=== PATIENT | female | born 1955 | race Caucasian/White ===

== ENCOUNTER → 2019-10-02 14:16 | Outpatient (BNVA) | payer OTHER, SELFPAY | PROVIDERS: Family Provider Nurse Practitioner Family; Visit Provider Internal Medicine Rheumatology | DX: M05.79 Rheumatoid arthritis with rheumatoid factor of multiple sites without organ or systems involvement (principal); Z79.891 Long term (current) use of opiate analgesic; Z79.899 Other long term (current) drug therapy; Z11.59 Encounter for screening for other viral diseases; Z72.89 Other problems related to lifestyle | CPT/HCPCS: 36415; 80076; 82565; 85651; 86140; 86704; 86803; 87340 ==

== ENCOUNTER → 2019-10-02 14:35 | Outpatient (BNVA) | payer OTHER, SELFPAY | PROVIDERS: Family Provider Nurse Practitioner Family; Visit Provider Internal Medicine Rheumatology | DX: M05.79 Rheumatoid arthritis with rheumatoid factor of multiple sites without organ or systems involvement (principal); M05.9 Rheumatoid arthritis with rheumatoid factor, unspecified; Z79.899 Other long term (current) drug therapy; Z79.891 Long term (current) use of opiate analgesic | CPT/HCPCS: 85025 ==

== ENCOUNTER → 2020-02-05 09:56 | Outpatient (BNVA) | payer OTHER, SELFPAY | PROVIDERS: Family Provider Nurse Practitioner Family; PCP Nurse Practitioner Family; Visit Provider Internal Medicine | DX: M06.9 Rheumatoid arthritis, unspecified (principal); Z79.899 Other long term (current) drug therapy; F17.210 Nicotine dependence, cigarettes, uncomplicated | CPT/HCPCS: 36415; 80053; 85025; 85651; 99214 ==

== ENCOUNTER → 2020-06-03 10:15 | Outpatient (BNVA) | payer OTHER, SELFPAY | PROVIDERS: Family Provider Nurse Practitioner Family; PCP Nurse Practitioner Family; Visit Provider Internal Medicine | DX: M05.9 Rheumatoid arthritis with rheumatoid factor, unspecified (principal); M32.9 Systemic lupus erythematosus, unspecified; F17.210 Nicotine dependence, cigarettes, uncomplicated | CPT/HCPCS: 99213 ==

== ENCOUNTER → 2020-09-09 09:56 | Outpatient (BNVA) | payer OTHER, SELFPAY | PROVIDERS: Family Provider Nurse Practitioner Family; PCP Nurse Practitioner Family; Visit Provider Internal Medicine | DX: M05.9 Rheumatoid arthritis with rheumatoid factor, unspecified (principal); Z79.899 Other long term (current) drug therapy; R74.01 Elevation of levels of liver transaminase levels; M85.80 Other specified disorders of bone density and structure, unspecified site; F17.210 Nicotine dependence, cigarettes, uncomplicated | CPT/HCPCS: 99214 ==

== ENCOUNTER → 2020-12-05 10:37 | Outpatient (BNVA) | payer OTHER, SELFPAY | PROVIDERS: Family Provider Nurse Practitioner Family; PCP Nurse Practitioner Family; Visit Provider Internal Medicine | DX: M06.9 Rheumatoid arthritis, unspecified (principal); Z79.899 Other long term (current) drug therapy; F17.210 Nicotine dependence, cigarettes, uncomplicated | CPT/HCPCS: 99213; 99214 ==

== ENCOUNTER → 2021-02-28 09:54 | Outpatient (BNVA) | payer OTHER, SELFPAY | PROVIDERS: Family Provider Nurse Practitioner Family; PCP Nurse Practitioner Family; Visit Provider Internal Medicine | DX: M06.9 Rheumatoid arthritis, unspecified (principal); Z79.899 Other long term (current) drug therapy | CPT/HCPCS: 80053; 85025; 85651; 86140 ==

== ENCOUNTER → 2021-03-04 09:27 | Outpatient (BNVA) | payer OTHER, SELFPAY | PROVIDERS: Family Provider Nurse Practitioner Family; PCP Nurse Practitioner Family; Visit Provider Internal Medicine | DX: M06.9 Rheumatoid arthritis, unspecified (principal); Z79.899 Other long term (current) drug therapy; J04.0 Acute laryngitis; F17.210 Nicotine dependence, cigarettes, uncomplicated | CPT/HCPCS: 99214 ==

== ENCOUNTER → 2021-05-21 10:10 | Outpatient (BNVA) | payer OTHER, SELFPAY | PROVIDERS: Family Provider Nurse Practitioner Family; PCP Nurse Practitioner Family; Visit Provider Internal Medicine | DX: M05.9 Rheumatoid arthritis with rheumatoid factor, unspecified (principal); Z79.899 Other long term (current) drug therapy; F17.210 Nicotine dependence, cigarettes, uncomplicated; Z71.89 Other specified counseling | CPT/HCPCS: 99213; 99214 ==

== ENCOUNTER → 2022-02-26 10:57 | Outpatient (BNVA) | payer MEDICARE, OTHER, SELFPAY | PROVIDERS: Family Provider Nurse Practitioner Family; PCP Registered Nurse; Visit Provider Internal Medicine | DX: M05.9 Rheumatoid arthritis with rheumatoid factor, unspecified (principal); Z79.899 Other long term (current) drug therapy | CPT/HCPCS: 99214 ==

== ENCOUNTER → 2022-06-23 10:01 | Outpatient (BNVA) | payer MEDICARE, OTHER, SELFPAY | PROVIDERS: Family Provider Nurse Practitioner Family; PCP Registered Nurse; Visit Provider Internal Medicine | DX: M05.9 Rheumatoid arthritis with rheumatoid factor, unspecified (principal); Z79.899 Other long term (current) drug therapy | CPT/HCPCS: 99213 ==

== ENCOUNTER → 2022-11-18 14:09 | Outpatient (BNVA) | payer MEDICARE, OTHER, SELFPAY | PROVIDERS: Family Provider Nurse Practitioner Family; PCP Nurse Practitioner Family; Visit Provider Internal Medicine | DX: M06.9 Rheumatoid arthritis, unspecified (principal); M21.961 Unspecified acquired deformity of right lower leg; Z79.899 Other long term (current) drug therapy | CPT/HCPCS: 99214 ==

== ENCOUNTER → 2023-01-28 09:43 | Outpatient (BNVA) | payer MEDICARE, OTHER, SELFPAY | PROVIDERS: Family Provider Nurse Practitioner Family; PCP Nurse Practitioner Family; Referring Provider Nurse Practitioner Family; Visit Provider Nurse Practitioner Family | DX: L56.0 Drug phototoxic response (principal); T50.915A Adverse effect of multiple unspecified drugs, medicaments and biological substances, initial encounter; Y99.9 Unspecified external cause status; L72.0 Epidermal cyst; L81.4 Other melanin hyperpigmentation; L57.0 Actinic keratosis; S50.912A Unspecified superficial injury of left forearm, initial encounter; X58.XXXA Exposure to other specified factors, initial encounter; D22.5 Melanocytic nevi of trunk; L85.3 Xerosis cutis; L57.8 Other skin changes due to chronic exposure to nonionizing radiation; D69.2 Other nonthrombocytopenic purpura; L82.1 Other seborrheic keratosis | CPT/HCPCS: 17000; 17003; 99204 ==

== ENCOUNTER → 2023-02-24 14:51 | Outpatient (BNVA) | payer MEDICARE, OTHER, SELFPAY | PROVIDERS: Family Provider Nurse Practitioner Family; PCP Nurse Practitioner Family; Visit Provider Internal Medicine | DX: Z79.899 Other long term (current) drug therapy; M05.9 Rheumatoid arthritis with rheumatoid factor, unspecified | CPT/HCPCS: 99213 ==

== ENCOUNTER → 2023-03-03 09:45 | Outpatient (BNVA) | payer MEDICARE, OTHER, SELFPAY | PROVIDERS: Family Provider Nurse Practitioner Family; PCP Nurse Practitioner Family; Visit Provider Dermatology | DX: L72.0 Epidermal cyst (principal); R20.8 Other disturbances of skin sensation; R23.8 Other skin changes; L53.8 Other specified erythematous conditions | CPT/HCPCS: 11403; 12032 ==

== ENCOUNTER → 2023-06-01 14:50 | Outpatient (BNVA) | payer MEDICARE, OTHER, SELFPAY | PROVIDERS: Family Provider Nurse Practitioner Family; PCP Nurse Practitioner Family; Visit Provider Internal Medicine | DX: M06.9 Rheumatoid arthritis, unspecified (principal); Z79.899 Other long term (current) drug therapy | CPT/HCPCS: 99214 ==

== ENCOUNTER → 2023-07-06 10:45 | Outpatient (BNVA) | payer MEDICARE, OTHER, SELFPAY | PROVIDERS: Family Provider Nurse Practitioner Family; PCP Nurse Practitioner Family; Visit Provider Nurse Practitioner Family | DX: L57.0 Actinic keratosis (principal); D69.2 Other nonthrombocytopenic purpura; L81.4 Other melanin hyperpigmentation; L57.8 Other skin changes due to chronic exposure to nonionizing radiation; L85.3 Xerosis cutis; L82.1 Other seborrheic keratosis | CPT/HCPCS: 17000; 99213 ==

== ENCOUNTER → 2024-06-26 09:27 | Outpatient (BNVA) | payer MEDICARE, OTHER, SELFPAY | PROVIDERS: Family Provider Nurse Practitioner Family; PCP Nurse Practitioner Family; Visit Provider Internal Medicine Rheumatology | DX: Z79.899 Other long term (current) drug therapy (principal); M06.9 Rheumatoid arthritis, unspecified | CPT/HCPCS: 99214 ==

== ENCOUNTER → 2024-12-26 12:29 | Outpatient (BNVA) | payer MEDICARE, OTHER, SELFPAY | PROVIDERS: Family Provider Nurse Practitioner Family; PCP Nurse Practitioner Family; Visit Provider Internal Medicine Rheumatology | DX: Z79.899 Other long term (current) drug therapy (principal); M05.79 Rheumatoid arthritis with rheumatoid factor of multiple sites without organ or systems involvement; Z71.85 Encounter for immunization safety counseling | CPT/HCPCS: 99214 ==

== ENCOUNTER 2025-04-12 15:06 | Emergency (ER) | payer MEDICARE, OTHER, SELFPAY ==
[2025-04-12 15:07] VITALS: BP 147/81; PULSE 106; RESP 16; TEMP 36.7; O2SAT 95; BMI 21.1
[2025-04-12 15:39] VITALS: BP 155/90; PULSE 103; O2SAT 95
--- NOTE | 2025-04-12 15:46 | CTR_ITS ---
PROCEDURE INFORMATION: Exam: CT Cervical Spine Without Contrast Exam date and time: 04/12/2025 4:08 PM Age: 70 years old Clinical indication: Injury or trauma; Fall; Blunt trauma TECHNIQUE: Imaging protocol: Computed tomography of the cervical spine without contrast. Radiation optimization: All CT scans at this facility use at least one of these dose optimization techniques: automated exposure control; mA and/or kV adjustment per patient size (includes targeted exams where dose is matched to clinical indication); or iterative reconstruction. COMPARISON: CT head wo con* [id number] 04/12/2025 4:08 PM RADIATION DOSE METRICS: Total DLP (mGy-cm): 152.3 FINDINGS: Bones: No acute fracture. Normal alignment. [id number] multilevel degenerative changes of the cervical spine. No significant disc bulge or herniation. No severe spinal canal stenosis. Multilevel bilateral facet arthropathy with areas of [id number] bilateral neural foraminal narrowing. Lungs: Emphysematous changes with areas of pleural/parenchymal scarring in the lung apices. Soft tissues: Unremarkable. CT/CT cervical spin wo con* [id number] IMPRESSION: No acute cervical spine fracture.
--- NOTE | 2025-04-12 15:46 | CTR_ITS ---
PROCEDURE INFORMATION: Exam: CT Head Without Contrast Exam date and time: 04/12/2025 4:08 PM Age: 70 years old Clinical indication: Injury or trauma; Blunt trauma (contusions or hematomas); Injury details: -pt presents with fall, presents in c-collar. Patient states multiple falls. Patient complaining of lower back pain. TECHNIQUE: Imaging protocol: Computed tomography of the head without contrast. Radiation optimization: All CT scans at this facility use at least one of these dose optimization techniques: automated exposure control; mA and/or kV adjustment per patient size (includes targeted exams where dose is matched to clinical indication); or iterative reconstruction. COMPARISON: CT cervical spin wo con* [id number] 04/12/2025 4:08 PM RADIATION DOSE METRICS: Total DLP (mGy-cm): 1195.7 FINDINGS: Brain: Mild age-related volume loss. No hemorrhage. Periventricular and subcortical white matter hypodensities likely represent chronic small vessel ischemic changes. No mass effect. Cerebral ventricles: No ventriculomegaly. Paranasal sinuses: Visualized sinuses are unremarkable. No fluid levels. Mastoid air cells: Visualized mastoid air cells are well aerated. Bones: Unremarkable. No acute fracture. Soft tissues: Unremarkable. CT/CT head wo con* [id number] IMPRESSION: No acute intracranial abnormality.
--- NOTE | 2025-04-12 15:46 | CTR_ITS ---
PROCEDURE INFORMATION: Exam: CT Lumbar Spine Without Contrast Exam date and time: 04/12/2025 4:12 PM Age: 70 years old Clinical indication: Injury or trauma; Fall; Blunt trauma (contusions or hematomas) TECHNIQUE: Imaging protocol: Computed tomography of the lumbar spine without contrast. Radiation optimization: All CT scans at this facility use at least one of these dose optimization techniques: automated exposure control; mA and/or kV adjustment per patient size (includes targeted exams where dose is matched to clinical indication); or iterative reconstruction. COMPARISON: No relevant prior studies available. RADIATION DOSE METRICS: Total DLP (mGy-cm): 508.43 FINDINGS: Bones/joints: Acute superior endplate compression fracture of L5 with approximately 15% height loss. No extension into the posterior vertebral wall or inferior endplate. No bony retropulsion. L1-L2: No significant disc bulge or herniation. No significant spinal canal stenosis. No significant neural foraminal narrowing. L2-L3: Mild posterior disc bulge and moderate bilateral facet arthropathy, contributing to mild spinal canal stenosis mild bilateral neural foraminal stenosis. L3-L4: Mild posterior disc bulge and moderate bilateral facet arthropathy, contributing to moderate spinal canal stenosis mild bilateral neural foraminal stenosis. L4-L5: Mild posterior disc bulge and moderate bilateral facet arthropathy, contributing to mild bilateral neural foraminal stenosis and mild spinal canal stenosis. L5-S1: No significant disc bulge or herniation. Severe right and moderate left facet arthropathy, contributing to mild bilateral neural foraminal stenosis. No spinal canal stenosis. Liver: Indeterminate 1.0 cm hypodense lesion in the right hepatic lobe. Gallbladder and biliary ducts: Cholelithiasis. Kidneys and ureters: A few punctate nonobstructing stones in the right kidney. Stomach and bowel: Partially visualized right lower quadrant ostomy. Vasculature: Moderate atherosclerotic calcifications of the normal-caliber abdominal aorta. Soft tissues: Unremarkable. CT/CT lumbar spine wo con* [id number] IMPRESSION: 1. Acute superior endplate compression fracture of L5 vertebral body with approximately 15% height loss. No extension into the posterior vertebral wall or inferior endplate. No bony retropulsion. 2. Multilevel chronic degenerative changes, as described above. 3. Indeterminate 1.0 cm hypodense lesion in the right hepatic lobe. Further evaluation with non-emergent liver MRI is recommended. (Reference: [place]) REFERENCES: [place] CARTER, et al. Management of Incidental Liver Lesions on CT: A White Paper of the ACR Incidental Findings Committee. J Am Esau Radiol. 2017;14(11):2470-7708.
--- NOTE | 2025-04-12 15:53 | ED_ITS ---
HPI - Fall 2 General: Chief Complaint: Fall Stated Complaint: fall, back pain History of Present Illness: 70-year-old female who presents emergenc y room she fell yesterday. She said multiple falls recently according to the family's been somewhat confused. She complaining of lower back pain and. She arrives in a c-collar per protocol with EMS she denies losing consciousness denies any vision changes denies any vomiting. She is not on any anticoagulants. No chest pain or abdominal pain denies any other injuries. Associated symptoms-after fall: Denies abdominal pain, chest pain or neck pain Related Data Home Medications ?Medication ?Instructions ?Recorded ?Confirmed albuterol sulfate 90 mcg/actuation 2 puff inhalation Q 6H PRN 02/05/20 04/12/25 aerosol inhaler (Ventolin HFA) Shortness Of Breath atorvastatin 40 mg tablet (Lipitor) 40 mg PO DAILY 04/12/25 cholecalciferol (vitamin D3) 1,250 1,250 mcg PO .WEEKL Y 02/05/20 04/12/25 mcg (50,000 unit) capsule guaifenesin 600 mg tablet, 600 mg PO BID PRN Congestio n 02/05/20 04/12/25 extended release 12 hr (Mucinex) loratadine 10 mg tablet (Claritin) 10 mg PO DAILY 01/1704/12/25 pantoprazole 40 mg tablet,delayed 40 mg PO BID PRN aci d refluxc 02/05/20 04/12/25 release fluticasone fur. 100 mcg-umeclid 1 inh inhalation SUZETTE Y 03/04/21 04/12/25 62.5 mcg-vilant 25 mcg inhalat.powder (Trelegy Ellipta) alprazolam 0.5 mg tablet See Rx Instructions .Route . COMPLEX 04/12/25 04/12/25 famotidine 40 mg tablet 40 mg PO DAILY 04/12/2503/20 ibandronate 150 mg tablet 150 mg PO .Q30D 04/12/25 Previous Rx's ?Medication ?Instructions ?Recorded hydroxychloroquine 200 mg tablet 200 mg PO BID #180 ta bs 12/26/24 methotrexate sodium 2.5 mg tablet 20 mg (8 x 2.5 mg) P O .Q7days #96 12/26/24 tabs prednisone 20 mg tablet See Rx Instructions PO .COMP WEI 12/26/24 PRN joint pain flare #30 tabs tofacitinib 5 mg tablet (Xeljanz) 5 mg PO BID #60 tabs 02/05/25 hydrocodone 5 mg-acetaminophen 325 1 tab PO Q6H PRN pa in #20 tabs 04/12/25 mg tablet Allergies Allergy/AdvReac Type Severity Reaction Status Date / Time vancomycin Allergy Unknown UNKNOWN Verified 12/26/24 13:34 Review of Systems 2 Const: Denies: fever(s) or chills Card: Denies: chest pain Resp: Denies: dyspnea GI: Denies: abdominal pain : Denies: dysuria, urinary frequency or urinary urgency Musc: Reports: back pain; Denies: neck pain Skin/Breast: Denies: rash PFSH ED 2 PFSH: Medical History Immunization counseling Seropositive rheumatoid arthritis of multiple sites Rheumatoid arthritis Social History Smoking and tobacco/nicotine status: current every day tobacco/nicotine user cigarettes Packs smoked per day: 0.5 Years cigarettes smoked: 50 Alcohol intake: never Substance/Drug Use: never Physical Exam 2 Const: GENERAL APPEARANCE: cooperative ORIENTATION/CONSCIOUSNESS: Yes awake HENMT: COMMON NORMALS: normocephalic, atraumatic and hearing grossly normal bilaterally HEAD & SCALP: normocephalic and atraumatic Resp: COMMON NORMALS: normal respiratory effort, No retractions, No use of accessory muscles and clear to auscultation bilaterally AUSCULTATION: clear to auscultation bilaterally Cardio: COMMON NORMALS: regular rate, regular rhythm and No murmurs present (Cardio) RATE: regular rate RHYTHM: regular rhythm GI: COMMON NORMALS: Soft to palpation and No hepatosplenomegaly present A USCULTATION: Yes normoactive bowel sounds PALPATION: Yes Soft to palpation, No Tenderness to palpation present (GI), No Guarding due to palpation present (GI) and Yes No hepatosplenomegaly present Extremity: COMMON NORMALS: normal to inspection, capillary refill normal, no clubbing, cyanosis or edema, no calf tenderness and no pedal edema Skin: COMMON NORMALS: no rashes or lesions noted GENERAL SKIN EXAM: no rashes or lesions noted Course 2 Vital Signs: Vital signs: Vital Signs Temperature 98.1 F 04/12/25 15:07 Pulse Rate 84 04/12/25 20:05 Respiratory Rate 14 04/12/25 20:05 Blood Pressure 147/92 04/12/25 20:05 Pulse Oximetry 96 04/12/25 20:05 Oxygen Delivery Me thod Room Air 04/12/25 15:07 MDM - Fall Medical Decision Making Patient was able to ambulate after the fall. She is complaining of low back pain. Patient does have an new acute L5 compression fracture with known posterior extension. CT of the neck was negative will refer to orthopedic spine surgery for possible kyphoplasty discharged home with pain meds Medical Records I reviewed the patient's medical records. Lab Data I reviewed the patient's lab results. 04/12/25 16:07 04/12/25 16:07 Radiology Impressions Cervical Spine CT 04/12/25 15:46 IMPRESSION: No acute cervical spine fracture. Head CT 04/12/25 15:46 IMPRESSION: No acute intracranial abnormality. Lumbar Spine CT 04/12/25 15:46 IMPRESSION: 1. Acute superior endplate compression fracture of L5 vertebral body with approximately 15% height loss. No extension into the posterior vertebral wall or inferior endplate. No bony retropulsion. 2. Multilevel chronic degenerative changes, as described above. 3. Indeterminate 1.0 cm hypodense lesion in the right hepatic lobe. Further evaluation with non-emergent liver MRI is recommended. (Reference: [facility]) REFERENCES: [place] CARTER, et al. Management of Incidental Liver Lesions on CT: A White Paper of the ACR Incidental Findings Committee. J Am Esau Radiol. 2017;14(11):4909-7288. Laboratory Results WBC 8.79 10^3/uL (3.29-11.43) 04/12/25 16:07 RBC 4.62 10^6/uL (3.85-5.65) 04/12/25 16:07 Hgb 14.10 g/dL (11.27-16.99) 04/12/25 16:07 Hct 42.6 % (36-47) 04/12/25 16:07 MCV 92.2 fl (85-98) 04/12/25 16:07 MCH 30.5 pg (27-33) 04/12/25 16:07 MCHC 33.1 g/dL (30-55) 04/12/25 16:07 RDW 17.2 % (12.1-15.1) H 04/12/25 16:07 Plt Count 285 10^3/cmm (157-399) 04/12/25 16:07 MPV 8.6 fL (7.4-10.4) 04/12/25 16:07 Neut % (Auto) 87.4 % 04/12/25 16:07 Lymph % (Auto) 4.9 % 04/12/25 16:07 [place] % (Auto) 6.9 % 04/12/25 16:07 Eos % (Auto) 0.0 % 04/12/25 16:07 Baso % (Auto) 0.1 % 04/12/25 16:07 Neut # (Auto) 7.68 10^3/uL (1.8-7.7) 04/12/25 16:07 Lymph # (Auto) 0.4 10^3/uL (0.8-4.8) L 04/12/25 16:07 [place] # (Auto) 0.6 10^3/uL (0.2-0.9) 04/12/25 16:07 Eos # (Auto) 0.0 10^3/uL (0.0-0.8) 04/12/25 16:07 Baso # (Auto) 0.0 10^3/uL (0.0-0.1) 04/12/25 16:07 Nucleated RBC % (auto) 0 % 04/12/25 16:07 Nucleated RBCs # 0.0 /100WBC 04/12/25 16:07 Sodium 134 mmol/L (136-145) L 04/12/25 16:07 Potassium 3.8 mmol/L (3.5-5.1) 04/12/25 16:07 Chloride 96 mmol/L (98-107) L 04/12/25 16:07 Carbon Dioxide 24 mmol/L (22-29) 04/12/25 16:07 Anion Gap 17.8 (5-19) 04/12/25 16:07 BUN 11 mg/dL (8-23) 04/12/25 16:07 Creatinine 0.7 mg/dL (0.5-0.9) 04/12/25 16:07 GFR Calculation 83.2 mL/min (90-130) L 04/12/25 16:07 Glucose 112 mg/dL (65-115) 04/12/25 16:07 Calculated Osmolality 278 mOsm/kg (285-295) L 04/12/25 16:07 Calcium 9.4 mg/dL (8.5-10.5) 04/12/25 16:07 Total Bilirubin 0.7 mg/dL (0.15-1.2) 04/12/25 16:07 AST 21 U/L (0-32) 04/12/25 16:07 ALT 17 U/L (0-33) 04/12/25 16:07 Alkaline Phosphatase 132 U/L (35-105) H 04/12/25 16:07 Total Protein 6.8 g/dL (6.6-8.7) 04/12/25 16:07 Albumin 3.6 g/dL (3.5-5.2) 04/12/25 16:07 Globulin 3.2 g/dL (1.3-4.6) 04/12/25 16:07 Urine Color Yellow (Yellow) 04/12/25 17: Urine Appearance Clear (CLEAR) 04/12/25 17: Urine pH 5.5 (5-7) 04/12/25 17: Ur Specific [place] 1.013 (1.005-1.030) 04/12/25 17: Urine Protein Negative (Negative) 04/12/25 17: Urine Glucose (UA) Negative (Normal) 04/12/25 17: Urine Ketones Negative (Negative) 04/12/25 17: Urine Blood 2+ (Negative) A 04/12/25 17: Urine Nitrate Negative (Negative) 04/12/25 17: Urine Bilirubin Negative (Negative) 04/12/25 17: Urine Urobilinogen 0.2 mg/dL (Negative) 04/12/25 17: Ur Leukocyte Esterase Trace (Negative) A 04/12/25 17: Urine RBC 3-5 /hpf (0-2) 04/12/25 17: Urine WBC 6-10 /hpf (0-5) 04/12/25 17: Ur Squamous Epith Cells 0-5 /hpf (0-5) 04/12/25 17:27 Amorphous Sediment Not Reportable 04/12/25 17:27 Urine Bacteria 4+ /hpf (NONE) H 04/12/25 17:27 Hyaline Casts 0.40 /lpf 04/12/25 17:27 All radiology interpretation(s) finalized by discharge Discharge Plan Discharge Patient Disposition: Home Clinical Impression: Compression fracture of fifth lumbar vertebra Condition: Stable Prescriptions: New hydrocodone-acetaminophen 5-325 mg tablet 1 tab PO Q6H PRN (Reason: pain) Qty: 20 0RF No Action loratadine [Claritin] 10 mg tablet 10 mg PO DAILY atorvastatin [Lipitor] 40 mg tablet 40 mg PO DAILY guaifenesin [Mucinex] 600 mg tablet extended release 12hr 600 mg PO BID PRN (Reason: Congestion) pantoprazole 40 mg tablet,delayed release (DR/EC) 40 mg PO BID PRN (Reason: acid refluxc) albuterol sulfate [Ventolin HFA] 90 mcg/actuation HFA aerosol inhaler 2 puff INHALATION Q6H PRN (Reason: Shortness Of Breath) cholecalciferol (vitamin D3) 1,250 mcg (50,000 unit) capsule 1,250 mcg PO .WEEKLY Rx Instructions: Wednesday's Trelegy Ellipta 100-62.5-25 mcg blister with device 1 inh inhalation DAILY hydroxychloroquine 200 mg tablet 200 mg PO BID Qty: 180 1RF methotrexate sodium 2.5 mg tablet 20 mg PO .Q7days Qty: 96 0RF Rx Instructions: Wednesday's prednisone 20 mg tablet See Rx Instructions PO .COMPLEX PRN (Reason: joint pain flare) Qty: 30 1RF Rx Instructions: Take 1 or 2 tablets by mouth daily for up to 7 days as needed for arthritis flare. Xeljanz 5 mg tablet 5 mg PO BID Qty: 60 5RF famotidine 40 mg tablet 40 mg PO DAILY alprazolam 0.5 mg tablet See Rx Instructions .ROUTE .COMPLEX Rx Instructions: TAKE 1 TABLET BY MOUTH EVERY MORNING, THEN TAKE 1 TABLET BY MOUTH early IN THE EVENING. ibandronate 150 mg tablet 150 mg PO .Q30D Rx Instructions: on the 1st Discharge Orders: Discharge ED (Routine); Ordered 04/12/25 Ordered By: Ja Castro Referrals: Nikia Busby NP [Primary Care Provider, Nurse Practitioner] Ching Tapia FNP-C [Family Provider, Nurse Practitioner] Discharge Diet: Usual diet Discharge Activity: Limit activity as instructed Patient Instructions: Opioid Safety, Pain Management, Patient Portal & Sacha Instructions Activity Restrictions/Additional Instructions: Thank you for choosing [facility] for your healthcare needs today. It is very important that you follow up as instructed or that you return to the Emergency Department should you have concerns or if your condition changes or worsens in any way. Emergency department visits are focused on emergent conditions, in some cases you may require further evaluation on an outpatient basis. You were seen in the emergency room after a fall. You have a compression fracture of your fifth lumbar vertebrae. Will make a referral for you to the orthopedic spine surgeon there is a procedure they can do to essentially glued the fracture back together called a kyphoplasty. This will reduce your pain. Will discharge home with pain medications to use. Case management will call to make you an appointment with the spine surgeon. (Please note that included in your discharge packet is information concerning opioid safety and pain management. This information is given to all patients were discharged from the ER regardless of their discharge diagnosis or the medicines they usually take or are prescribed.) Print Language: Sinhala Coding Level of Care Code ED [employer] Worker for Flor Mehta
[2025-04-12 16:00] VITALS: BP 151/87; PULSE 99; O2SAT 95
[2025-04-12 16:33] LABS: Hematocrit 42.6 % (36-47); Hemoglobin 14.10 g/dL (11.27-16.99); Mean Corpuscular HGB Conc 33.1 g/dL (30-55); Mean Corpuscular Hemoglobin 30.5 pg (27-33); Mean Corpuscular Volume 92.2 fl (85-98); Nucleated Red Blood Cells % 0 %; Platelet Count 285 10^3/cmm (157-399); Red Blood Count 4.62 10^6/uL (3.85-5.65); White Blood Count 8.79 10^3/uL (3.29-11.43)
--- OUTSIDE RECORDS SUMMARY | 2025-04-12 16:36 | XMS_ITS | Clinical Summary ---
Author Organization [facility] Address [address] Attn: Epic Prelude ADT LIZA RIOS [address] Care Team Providers Care Laundry Equipment Operator Name Role Phone Madyson Tapiacaitlyn Jordan [facility] Primary Care Provider [phone] Allergies Active Allergy Reactions Criticality Noted Date Comments Vancomycin Nausea and Vomiting Low 07/11/2019 Medications methotrexate (RHEUMATREX) 15 mg TabletIndication s:took last time on 10/24/24 Take 15 mg by mouth every 7 days. 9 Active pantoprazole (PROTONIX) 20 mg Tablet, Delayed Release (E.C.) Take 20 mg by mouth late in the day. 9 Active hydrOXYchloroQUI NE (PLAQUENIL) 200 mg tablet Take 200 mg by mouth 2 times daily. Active ALPRAZolam (XANAX) 1 mg tablet Take 1 mg by mouth 2 times daily. Active atorvastatin (LIPITOR) 20 mg tablet Take 20 mg by mouth daily with supper. Active albuterol sulfate 90 mcg/Actuation inhaler Take 2 Puffs by inhalation 2 times daily. Or as needed 9 Active fluticasone propion/salmeter ol (ADVAIR DISKUS INHALATION) Take 1 Puff by inhalation daily. Active tofacitinib citrate (XELJANZ XR ORAL) Take 20 mg by mouth 2 times daily. Active raNITIdine (ZANTAC) 150 mg tablet Take 150 mg by mouth daily. Active ergocalciferol, vitamin D2, (VITAMIN D ORAL) Take 1 Tablet by mouth daily. Active desvenlafaxine (PRISTIQ) 100 mg Extended Release 24 hour tablet Take 100 mg by mouth daily at bedtime. Active multivitamin (DAILY-JACKLYN) tablet Take 1 Tablet by mouth daily. Active loratadine 10 mg Capsule Take 1 Tablet by mouth daily. Active famotidine (PEPCID) 40 mg tablet Take 40 mg by mouth daily. Active solifenacin (VESICARE) 5 mg Tablet Take 5 mg by mouth daily. Active HYDROcodone-acet aminophen (NORCO) 5-325 mg tabletIndication s:Rheumatoid arthritis involving multiple sites, unspecified whether rheumatoid factor present (CMS/HCC),Fall, initial encounter,Cellul itis of right lower extremity without foot,Pressure injury of sacral region, stage 1,Pressure injury of right heel, unstageable (CMS/[facility]) Take 1 Tablet by mouth every 6 hours as needed for Pain, Moderate. Max Daily Amount: 4 Tablets Active ondansetron (ZOFRAN ODT) 4 mg Tablet, Rapid Dissolve Take 1 Tablet (4 mg) by mouth every 6 hours as needed for Nausea/Emesis. Dissolve tablet on top of tongue, then swallow with saliva. Active white petrolatum-forensic science examiner al oiL (EUCERIN) Cream Apply to affected area 2 times daily. Active naloxone (NARCAN) 4 mg/spray [place], Non-Aerosol Administer 1 [place] (4 mg) in one nostril (alternate nostril with each dose) one time as needed for Respiration (slowed with opioid use). Push plunger to administer. Call 911. May repeat dose, every 2-3 minutes, if the person does not wake up or breathing is not improved. 5 Active Active Problems Problem Noted Date Diagnosed Date Protein-calorie malnutrition, moderate Failure to thrive in adult 10/24/2024 Cellulitis of right lower extremity without foot 10/24/2024 Pressure injury of heel, unstageable 10/24/2024 Pressure injury of sacral region, stage 1 2024 Fall 10/23/2024 Skin tear of right elbow without complication Abnormal weight loss 10/23/2024 Hyponatremia 10/23/2024 Mixed hyperlipidemia 10/23/2024 Mixed stress and urge urinary incontinence 10/23 Pulmonary emphysema 10/23/2024 Overview (10/23/2024): DVT/PE Acute cystitis with hematuria 08/10/2024 Delirium 08/10/2024 Unable to care for self 08/10/2024 RA (rheumatoid arthritis) [id number] deficiency Anxiety Encounters Date Type Department Care Team Description 04/10/2025 External Device Data [facility] Provider, Abstract 02/27/2025 External Device Data [facility] AB[facility]CTION Provider, Abstract 02/27/2025 External Device Data [facility] Provider, Abstract 02/06/2025 External Device Data [facility] Provider, Abstract 01/23/2025 External Device Data [facility] Provider, Abstract from Last 3 Months Immunizations Immunization Administration Dates Next Due (ADACEL/BOOSTRIX)(10 YR UP) TDAP VACCINE, 0.5ML, IM 10/03/2024 Family History Medical History Relation Name Comments Stroke Father Colon Cancer Mother Relation Name Status Comments Father Mother Social History Tobacco Use Types Packs/Day Years Used Date Smoking Tobacco: Every Day Cigarettes Started: 1983 Smokeless Tobacco: Never Tobacco Cessation:Ready to Q uit: No; Counseling Given: Yes Alcohol Use Standard Drinks/Week Comments Never 0 (1 standard drink = 0.6 oz pur e alcohol) Feeling Safe Answer Date Recorded Are you in a relationship wi th someone who hurts you emotionally and/or physically? 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 Gender Identity Not on file Sexual Orientation Not on file Last Filed Vital Signs Vital Sign Reading Time Taken Comments Blood Pressure 108/64 10/26/2024 11:00 AM CDT Pulse 73 10/26/2024 7:02 AM CDT Temperature 35.9 C (96.6 F) 10/26/2024 11:00 AM CDT Respiratory Rate 18 10/26/2024 11:00 AM CDT Oxygen Saturation 100% 10/26/2024 11:00 AM CDT Inhaled Oxygen Concentration - - Weight 54.9 kg (121 lb) 10/23/2024 7:33 PM CDT Height 162.6 cm (5' 4 ) 10/23/2024 7:33 PM CDT Body Mass Index 20.77 10/23/2024 7:33 PM CDT Plan of Treatment Health Maintenance Due Date Last Done Comments ZOSTER VACCINE (1 of 2) 01/13/1976 BREAST CANCER SCREENING 1997 COLORECTAL SCREENING 2002 Colorectal Cancer Screening 2002 FIT-DNA Q 3 years 2002 FIT/FOBT Q 1 year 2002 Flex Sig/CT Colonography Q 5 years 2002 RSV VACCINE (60+ or ) (1 - Risk 60-74 years 1-dose series) 2017 INFLUENZA VACCINE (#1) 2025 3, 05/18/2022, 05/16/2021, Additional history exists OSTEOPOROSIS SCREENING 03/11/2025 03/11/2020, 2019 DTAP/TDAP/TD VACCINES (3 - T d or Tdap) 10/03/2034 10/03/2024, 07/19/2016 PNEUMOCOCCAL VACCINE 50+ YEARS Completed 11/17/2023 Procedures Procedure Name Priority Date/Time Associated Diagnosis Comments XR DEXA BONE DENSITY AXIAL 1 OR MORE SITES Routine 03/11/2020 12:43 PM CDT Asymptomatic menopausal state from Last 3 Months or Most Recently Relevant to Health Maintenance Results * XR DEXA BONE DENSITY AXIAL 1 OR MORE SITES (03/11/2020 12:43 PM CDT) Anatomical Region Laterality Modality Other Impressions 03/11/2020 5:10 PM CDT 1. Osteopenia with a relative fracture risk approximately 3 times that of a young healthy adult. 2. No prior studies are available for comparison. 3. Current recommendations are that a follow-up bone mineral density BMD obtained at an interval of not less than two years, except for in specific circumstances, such as after the initiation or change of therapy. Please note, the lumbar bone mineral density may be spuriously elevated due to vertebral compression fracture, osteophytes, or aortic calcification. The femoral neck bone mineral density may be falsely elevated in the presence of degenerative changes. For postmenopausal women, men > age 65 years and for men aged 50-65 years with other risk factors, the WHO defines a normal BMD as a T score at or above -1.0, osteopenia as a T-score greater than -2.5 and less than -1.0 SD below peak BMD, and osteoporosis as a T-score at or below 2.5 SD peak BMD. The risk of osteoporotic fracture doubles for each SD (T-score) below peak BMD. A low Z-score may warrant consideration of secondary causes of accelerated bone loss. For premenopausal women, men under age 50 and for children, Z-scores are used to compare bone density to age-matched controls. The diagnosis of osteoporosis in these population's requires clinical assessment of additional risk factors. For patients not currently receiving treatment for diminished BMD, FRAX (fracture risk assessment tool) software can be used to calculate the 10-year fracture probability. The estimate is based on the patient's age, gender, ethnicity, height, weight, femoral neck BMD, T-score and several risk factors and is endorsed by the WHO. Current guidelines recommend considering initiation of medical therapy in postmenopausal women and men aged 50 or older with (a) 10 year fracture probability by FRAX of 3% (or greater) for hip fracture or 20% (or greater) for major osteoporotic fracture, or (b) a T-score of -2.5 at the lower spine or hip or, (c) a known hip or vertebral fracture. Treatment decisions require clinical judgment and consideration of individual patient factors, including patient preferences, comorbidities, risk factors not captured in the FRAX model. www.shef.ac.uk/FRAX/. Enter FID3 for Select DXA and the Femoral Neck BMD value. Narrative 03/11/2020 5:10 PM CDT BONE DENSITOMETRY (DEXA), LUMBAR/HIP, 03/11/2020 12:43 PM HISTORY: Osteoporosis screening. Evaluation of bone mineral density. COMPARISON: None TECHNIQUE: The bone mineral density (BMD) was determined using a dual-energy x-ray source (Hologic). Fracture risk is related to the absolute bone density and is therefore expressed as compared to a young gender-matched population development representative of the medial peak bone density. Bone mineral density of the lumbar spine, L1-L4: BMD (g/cm2): 1.047 T-score (SD of peak BMD): 0.0 Z score (SD of age-matched BMD): 1.6 Bone mineral density of the neck of the left femur: BMD (g/cm2): 0.659 T-score (SD of peak BMD): -1.7 Z score (SD of age-matched BMD): -0.3 Bone mineral density of the total left femur: BMD (g/cm2): 0.851 T-score (SD of peak BMD): -0.7 Z score (SD of age-matched BMD): 0.4 Procedure Note Dyan Baker MD - 12/18/2020 BONE DENSITOMETRY (DEXA), LUMBAR/HIP, 03/11/2020 12:43 PM HISTORY: Osteoporosis screening. Evaluation of bone mineral density. COMPARISON: None TECHNIQUE: The bone mineral density (BMD) was determined using a dual-energy x-ray source (Hologic). Fracture risk is related to the absolute bone density and is therefore expressed as compared to a young gender-matched population development representative of the medial peak bone density. Bone mineral density of the lumbar spine, L1-L4: BMD (g/cm2): 1.047 T-score (SD of peak BMD): 0.0 Z score (SD of age-matched BMD): 1.6 Bone mineral density of the neck of the left femur: BMD (g/cm2): 0.659 T-score (SD of peak BMD): -1.7 Z score (SD of age-matched BMD): -0.3 Bone mineral density of the total left femur: BMD (g/cm2): 0.851 T-score (SD of peak BMD): -0.7 Z score (SD of age-matched BMD): 0.4 IMPRESSION 1. Osteopenia with a relative fracture risk approximately 3 times that of a young healthy adult. 2. No prior studies are available for comparison. 3. Current recommendations are that a follow-up bone mineral density BMD obtained at an interval of not less than two years, except for in specific circumstances, such as after the initiation or change of therapy. Please note, the lumbar bone mineral density may be spuriously elevated due to vertebral compression fracture, osteophytes, or aortic calcification. The femoral neck bone mineral density may be falsely elevated in the presence of degenerative changes. For postmenopausal women, men > age 65 years and for men aged 50-65 years with other risk factors, the WHO defines a normal BMD as a T score at or above -1.0, osteopenia as a T-score greater than -2.5 and less than -1.0 SD below peak BMD, and osteoporosis as a T-score at or below 2.5 SD peak BMD. The risk of osteoporotic fracture doubles for each SD (T-score) below peak BMD. A low Z-score may warrant consideration of secondary causes of accelerated bone loss. For premenopausal women, men under age 50 and for children, Z-scores are used to compare bone density to age-matched controls. The diagnosis of osteoporosis in these population's requires clinical assessment of additional risk factors. For patients not currently receiving treatment for diminished BMD, FRAX (fracture risk assessment tool) software can be used to calculate the 10-year fracture probability. The estimate is based on the patient's age, gender, ethnicity, height, weight, femoral neck BMD, T-score and several risk factors and is endorsed by the WHO. Current guidelines recommend considering initiation of medical therapy in postmenopausal women and men aged 50 or older with (a) 10 year fracture probability by FRAX of 3% (or greater) for hip fracture or 20% (or greater) for major osteoporotic fracture, or (b) a T-score of -2.5 at the lower spine or hip or, (c) a known hip or vertebral fracture. Treatment decisions require clinical judgment and consideration of individual patient factors, including patient preferences, comorbidities, risk factors not captured in the FRAX model. www.shef.ac.uk/FRAX/. Enter Hologic for Select DXA and the Femoral Neck BMD value. Ching Tapia HEAD OF OPERATION AND LOGISTICS DIAGNOSTIC IMAGING ORDERABLES Final Result from Last 3 Months or Most Recently Relevant to Health Maintenance Insurance [facility] MEDICARE PART A AND B [facility] [employer] MEDICARE PART A AND B Advance Directives For more information, please contact: [phone] * Full Code (Latest Code Status on File) Date Activated Date Inactivated Comments 10/23/2024 10:07 PM 10/26/2024 6:08 PM * Full Code Date Activated Date Inactivated Comments 08/10/2024 9:35 PM 08/15/2024 1:19 PM Care Teams Laundry Equipment Operator Relationship Specialty Start Date End Date Ching Tapia FNP [address] [place] [address] PCP - General Nurse Practitioner Family 07/11/19
--- OUTSIDE RECORDS SUMMARY | 2025-04-12 16:36 | XMS_ITS | Clinical Summary ---
Author Organization [facility] Address [address] [place] [address] Phone Care Team Providers Care Wood Bucker Name Role Phone Ching Tapia SUPERVISOR EVAPORATOR Primary Care Provider [phone] Allergies Active Allergy Reactions Criticality Noted Date Comments Vancomycin Nausea and Vomiting Low 07/11/2019 Medications raNITIdine (ZANTAC) 150 mg tablet Take 150 mg by mouth daily. Active FOLIC ACID ORAL Take 1 Tablet by mouth daily. Active methotrexate (RHEUMATREX) 15 mg Tablet Take 15 mg by mouth every 7 days. Active tofacitinib citrate (XELJANZ XR ORAL) Take 20 mg by mouth 2 times daily. Active hydroxychloroqu ine (PLAQUENIL) 200 mg tablet Take 200 mg by mouth 2 times daily. Active ALPRAZolam (XANAX) 1 mg tablet Take 1 mg by mouth 2 times daily. Active pantoprazole (PROTONIX) 20 mg Tablet, Delayed Release (E.C.) Take 20 mg by mouth late in the day. Active albuterol HFA 90 mcg inhaler Take 2 Puffs by inhalation 2 times daily. Or as needed Active fluticasone propion/salmete rol (ADVAIR DISKUS INHALATION) Take 1 Puff by inhalation daily. Active atorvastatin (LIPITOR) 20 mg tablet Take 20 mg by mouth daily with supper. 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 Gender Identity Not on file Sexual Orientation Not on file Last Filed Vital Signs Vital Sign Reading Time Taken Comments Blood Pressure 115/67 07/11/2019 3:30 PM BENZENE WASHER OPERATOR Pulse - - Temperature 36.4 C (97.6 F) 07/11/2019 3:30 PM BENZENE WASHER OPERATOR Respiratory Rate 16 07/11/2019 3:30 PM BENZENE WASHER OPERATOR Oxygen Saturation 97% 07/11/2019 3:30 PM BENZENE WASHER OPERATOR Inhaled Oxygen Concentration - - Weight 77.9 kg (171 lb 11.2 oz) 07/11/2019 2:50 PM BENZENE WASHER OPERATOR Height 162.6 cm (5' 4 ) 07/11/2019 2:50 PM BENZENE WASHER OPERATOR Body Mass Index 29.47 07/11/2019 2:50 PM BENZENE WASHER OPERATOR Plan of Treatment Health Maintenance Due Date Last Done Comments DTAP/TDAP/TD VACCINES (1 - Tdap) 01/13/1976 BREAST CANCER SCREENING 1997 COLORECTAL SCREENING 2002 Colorectal Cancer Screening 2002 FIT-DNA Q 3 years 2002 FIT/FOBT Q 1 year 2002 Flex Sig/CT Colonography Q 5 years 2002 PNEUMOCOCCAL VACCINE 50+ YEARS (1 of 1 - PCV) 01/13/20 07 ZOSTER VACCINE (1 of 2) 2007 INFLUENZA VACCINE (#1) 2025 OSTEOPOROSIS SCREENING 03/11/2025 03/11/2020 RSV VACCINE (60+ or ) (1 - 1-dose 75+ series) 01/13/2032 Procedures Procedure Name Priority Date/Time Associated Diagnosis Comments XR DEXA BONE DENSITY AXIAL 1 OR MORE SITES Routine 03/11/2020 12:43 PM CDT Asymptomatic menopausal state from Last 3 Months or Most Recently Relevant to Health Maintenance Results * XR DEXA BONE DENSITY AXIAL 1 OR MORE SITES (03/11/2020 12:43 PM CDT) Anatomical Region Laterality Modality Digital Radiogra phy 03/11/2020 12:4 3 PM CDT Impressions 03/11/2020 5:10 PM CDT IMPRESSION: 1. Osteopenia with a relative fracture risk [...] captured in the FRAX model. www.shef.ac.uk/FRAX/. Enter TiVUS for Select DXA and the Femoral Neck [...] as compared to a young gender-matched population leasing representative of the medial peak bone density. [...] 0.4 Procedure Note Dyan Baker MD - 03/11/2020 BONE DENSITOMETRY (DEXA), LUMBAR/HIP, 03/11/2020 12:43 PM HISTORY: Osteoporosis screening. Evaluation of bone mineral density. COMPARISON: None TECHNIQUE: The bone mineral density (BMD) was determined using a dual-energy x-ray source (Hologic). Fracture risk is related to the absolute bone density and is therefore expressed as compared to a young gender-matched population leasing representative of the medial peak bone density. [...] Z score (SD of age-matched BMD): 0.4 IMPRESSION: 1. Osteopenia with a relative fracture risk [...] captured in the FRAX model. www.shef.ac.uk/FRAX/. Enter HoloIntegr[employer] Applications for Select DXA and the Femoral Neck BMD value. Ching Tapia SUPERVISOR EVAPORATOR DIAGNOSTIC IMAGING ORDERABLES Final Result from Last 3 Months or Most Recently Relevant to Health Maintenance Care Teams Wood Bucker Relationship Specialty Start Date End Date Ching Tapia FNP [address] [place] [address] PCP - General Nurse Practitioner Family 07/11/19
--- OUTSIDE RECORDS SUMMARY | 2025-04-12 16:36 | XMS_ITS | Encounter Summary ---
Author Organization [facility] Address [address] [place] [address] Care Team Providers Care Car Restorer Name Role Phone Ching Tapia Primary Care Provider [phone] Reason for Referral * Radiology Services (Routine) - Closed Specialty Diagnoses / Procedures Referred By Contac t Referred To Contact Radiology Diagnoses Asymptomatic menopausal state Procedures XR DEXA BONE DENSITY AXIAL 1 OR MORE SITES Ching Tapia FNP [address] [place] [address] Phone: tel: fax: [facility] [address] [place] [address] Phone: tel: fax: Referral ID Status Reason Start Date Expiration Date Visits Re quested Visits Authorized [id number] Closed 02/21/2020 03/23/2021 1 1 Encounter Details Date Type Department Care Team (Latest Contact Info) Description 02/21/2020 Ancillary Orders [facility] [address] [place] [id number] Ching Tapia FNP [address] [place], [place] [id number] Asymptomatic menopausal state Social History Tobacco Use Types Packs/Day Years Used Date Smoking Tobacco: Every Day Cigarettes Smokeless Tobacco: Never Alcohol Use Standard Drinks/Week Comments Never 0 (1 standard drink = 0.6 oz pur e alcohol) Comments No Sex and Gender Information Value Date Recorded Sex Assigned at Not on file Legal Sex Female 2:37 PM CAMPUS RECRUITING INTERN Gender Identity Not on file Sexual Orientation Not on file documented as of this encounter Plan of Treatment Not on file documented as of this encounter Results * XR DEXA BONE DENSITY AXIAL [...] captured in the FRAX model. www.shef.ac.uk/FRAX/. Enter [employer] for Select DXA and the Femoral Neck BMD value. Narrative 03/11/2020 5:10 PM CDT BONE DENSITOMETRY (DEXA), LUMBAR/HIP, 03/11/2020 12:43 PM HISTORY: Osteoporosis screening. Evaluation of bone mineral density. COMPARISON: None TECHNIQUE: The bone mineral density (BMD) was determined using a dual-energy x-ray source ([employer] Systems). Fracture risk is related to the absolute bone density and is therefore expressed as compared to a young gender-matched population outbound sales representative of the medial peak bone density. [...] was determined using a dual-energy x-ray source ([employer]). Fracture risk is related to the absolute bone density and is therefore expressed as compared to a young gender-matched population outbound sales representative of the medial peak bone density. [...] captured in the FRAX model. www.shef.ac.uk/FRAX/. Enter [employer] Systems for Select DXA and the Femoral Neck BMD value. Ching BORGES DIAGNOSTIC IMAGING ORDERABLES Final Result documented in this encounter Visit Diagnoses Diagnosis Asymptomatic menopausal state Asymptomatic postmenopausal status (age-related) (natural) Asymptomatic menopausal state Asymptomatic postmenopausal status (age-related) (natural) documented in this encounter Care Teams Car Restorer Relationship Specialty Start Date End Date Ching Tapia FNP [address] [place] [address] PCP - General Nurse Practitioner Family 07/11/19 documented as of this encounter
--- OUTSIDE RECORDS SUMMARY | 2025-04-12 16:36 | XMS_ITS | Encounter Summary ---
Author Organization [facility] Address 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
[2025-04-12 16:57] LABS: Alanine Aminotransferase 17 U/L (0-33); Albumin Level 3.6 g/dL (3.5-5.2); Alkaline Phosphatase 132 U/L (35-105); Anion Gap 17.8 (5-19); Aspartate Amino Transferase 21 U/L (0-32); Blood Urea Nitrogen 11 mg/dL (8-23); Calcium 9.4 mg/dL (8.5-10.5); Carbon Dioxide 24 mmol/L (22-29); Chloride 96 mmol/L (98-107); Creatinine Clr Calc Pharmacy 58.5829; Globulin 3.2 g/dL (1.3-4.6); Glucose 112 mg/dL (65-115); Osmolality Calculated 278 mOsm/kg (285-295); Potassium 3.8 mmol/L (3.5-5.1); Sodium 134 mmol/L (136-145); Total Protein 6.8 g/dL (6.6-8.7)
[2025-04-12 17:00] VITALS: BP 134/79; PULSE 96; O2SAT 94
[2025-04-12 18:26] LABS: Glucose Urine UA Negative (Normal); Nitrate Urine Negative (Negative); Specific Gravity, Urine 1.013 (1.005-1.030)
[2025-04-12 18:33] LABS: Add Urine Microscopic? YES
[2025-04-12 20:05] VITALS: BP 147/92; PULSE 84; RESP 14; O2SAT 96
--- NOTE | 2025-04-13 04:30 | DCPLANNER ---
Message sent to Ortho for follow up-Compression fracture of fifth lumbar vertebra
== END 2025-04-12 20:09 | disposition home or self-care (01) ==
PROVIDERS: Emergency Provider Family Medicine; Family Provider Nurse Practitioner Family; PCP Nurse Practitioner Family
DX: S32.050A Wedge compression fracture of fifth lumbar vertebra, initial encounter for closed fracture (principal); W19.XXXA Unspecified fall, initial encounter
CPT/HCPCS: 36415; 70450; 72125; 72131; 80053; 81001; 85025; 87077; 87086; 87186; 96374; 99285; J1885

== ENCOUNTER → 2025-05-01 15:15 | Outpatient (BNVA) | payer MEDICARE, OTHER, SELFPAY | PROVIDERS: Family Provider Nurse Practitioner Family; PCP Nurse Practitioner Family; Visit Provider Orthopaedic Surgery | DX: S32.050A Wedge compression fracture of fifth lumbar vertebra, initial encounter for closed fracture (principal); W19.XXXA Unspecified fall, initial encounter | CPT/HCPCS: 72100; 99203 ==

== ENCOUNTER → 2025-05-15 14:59 | Outpatient (BNVA) | payer MEDICARE, OTHER, SELFPAY | PROVIDERS: Family Provider Nurse Practitioner Family; PCP Nurse Practitioner Family; Visit Provider Orthopaedic Surgery | DX: S32.050D Wedge compression fracture of fifth lumbar vertebra, subsequent encounter for fracture with routine healing (principal); X58.XXXD Exposure to other specified factors, subsequent encounter | CPT/HCPCS: 72100; 99024; 99213 ==

== ENCOUNTER → 2025-05-17 09:21 | Outpatient (BNVA) | payer MEDICARE, OTHER, SELFPAY | PROVIDERS: Family Provider Nurse Practitioner Family; PCP Nurse Practitioner Family; Visit Provider Internal Medicine | DX: R91.8 Other nonspecific abnormal finding of lung field (principal); J44.89 Other specified chronic obstructive pulmonary disease; Z71.6 Tobacco abuse counseling; F17.210 Nicotine dependence, cigarettes, uncomplicated | CPT/HCPCS: 99204; 99406; Q3014 ==

== ENCOUNTER 2025-05-25 09:24 | Outpatient (CLI) | payer MEDICARE, OTHER, SELFPAY ==
--- NOTE | 2025-05-25 09:30 | PETR_ITS ---
PROCEDURE INFORMATION: Exam: PET/CT Skull Base to Mid-thigh Exam date and time: 05/25/2025 10:18 AM Age: 70 years old Clinical indication: Lung mass, multiple pulmonary nodules LABS AND CLINICAL REPORTS: Glucose: 109 mg/dl Treatment strategy for malignancy (PET staging): Initial Staging (PI) TECHNIQUE: Imaging protocol: Following at least four-hour fasting and following the injection of radiopharmaceutical, low dose CT images were obtained. Then, PET images were obtained. Attenuation corrected images were constructed using the CT scan. Fused images of PET and CT were reviewed. The standardized uptake values (SUV) reported below are maximum values within a region of interest, expressed in gm/ml. Exam includes orbital meatal line to mid-thigh. SUV normalization method: BodyWeight Radiopharmaceutical: 9.25 mCi F-18 FDG (Fluorodeoxyglucose), IV. Time of imaging post radiopharmaceutical administration: 47 minutes Injection site: R AC COMPARISON: 1. CT chest w con* [id number] 04/25/2025 8:[address] lumbar spine wo con* [id number] 04/12/2025 4:12 PM FINDINGS: Brain: Visualized brain has normal physiologic uptake. Pharynx: No abnormal uptake. Larynx: No abnormal uptake. Lungs, pleura and trachea: Mild emphysematous changes. Decreased size and increased fluid filling within peripherally FDG avid cavitary right lower lobe mass with small component extending to the right upper lobe, SUV max 11.8 at the superior aspect on axial image 91. Mass measures approximately 3.9 x 2.3 cm on axial image 99, previously 5.5 x 3.3 cm. Stable smaller FDG avid bandlike opacity at the anterior right middle lobe shows SUV max 3.9 on axial image 116. Similar small opacity in the right upper lobe with SUV max 1.3 on axial image 76. Stable mild lateral left basilar atelectasis versus scarring. Heart: Normal physiologic uptake. Coronary arteries: Mild coronary artery calcification. Mediastinal space: No abnormal uptake. Liver: No abnormal uptake. Gallbladder and biliary ducts: No abnormal uptake. Cholelithiasis. Redemonstrated intrahepatic pneumobilia. Pancreas: No abnormal uptake. Spleen: No abnormal uptake. Adrenal glands: No abnormal uptake. Kidneys and ureters: Normal physiologic uptake. Stomach and bowel: Postsurgical changes suggesting prior colectomy with right abdominal ileostomy. Associated FDG uptake at the thickened superficial aspect shows SUV max 4.8 on axial image 188. Otherwise no abnormal uptake. Reproductive: The uterus is surgically absent. Vasculature: No abnormal uptake. Moderate systemic atherosclerotic calcification without aortic aneurysm. Lymph nodes: No abnormal uptake. No lymphadenopathy in the head, neck, chest, abdomen, pelvis, and extremities. Skeleton: No abnormal uptake in the visualized axial and appendicular skeleton. Stable moderate anterior wedge compression deformity of the superior T12 vertebral body with associated low-level FDG uptake. Stable mild compression deformity of the superior L5 vertebral body with lower level FDG uptake. Degenerative changes along the spine, acromioclavicular joints and pubic symphysis. Soft tissues: Multifocal linear FDG uptake along bilateral neck and shoulder musculature as well as adjacent to left greater trochanter without underlying CT abnormality is likely benign physiologic activation and/or strain. METRICS: Mediastinal blood pool: SUV mean 2.0 Liver uptake: SUV mean 2.4 PET/PET skull to thigh INIT [id number] IMPRESSION: 1. Decreased size with increased fluid filling of peripherally FDG avid cavitary right lower lobe mass favors benign infectious or inflammatory process with malignant etiology thought less likely. Recommend continued follow-up chest CT to ensure resolution. 2. Additional smaller pulmonary opacities with lower level FDG uptake that is favored inflammatory. These may also be re-evaluated on follow-up CT. 3. Intrahepatic pneumobilia, query prior instrumentation. Could also indicate incompetent sphincter of Oddi. 4. Cholelithiasis. 5. Mildly superficially thickened FDG-avid right abdominal ostomy is likely inflammatory. 6. Additional chronic and incidental findings as above.
== END 2025-05-25 09:25 | disposition home or self-care (01) ==
LOC: RAD 09:24
PROVIDERS: Family Provider Nurse Practitioner Family; PCP Nurse Practitioner Family; Visit Provider Internal Medicine
DX: R91.8 Other nonspecific abnormal finding of lung field (principal); J98.11 Atelectasis; K80.20 Calculus of gallbladder without cholecystitis without obstruction; Z98.890 Other specified postprocedural states; S22.080A Wedge compression fracture of T11-T12 vertebra, initial encounter for closed fracture; S32.050A Wedge compression fracture of fifth lumbar vertebra, initial encounter for closed fracture; K83.8 Other specified diseases of biliary tract; X58.XXXA Exposure to other specified factors, initial encounter
CPT/HCPCS: 78815; A9552

== ENCOUNTER 2025-05-30 10:41 | Outpatient (CLI) | payer MEDICARE, OTHER, SELFPAY ==
--- NOTE | 2025-05-30 10:45 | MR_ITS ---
WS: [id number] MRI/MRCP OF THE ABDOMEN WITHOUT GADOLINIUM ENHANCEMENT TECHNIQUE: Coronal T2 Fase BH, Axial T2 Fase BH, Axial T2 FS BH, Zxial 3D Lima BH, Axial DWI BH, 2D MRCP Radial BH CLINICAL INFORMATION: LIVER LESION COMPARISON: PET/CT 1125 FINDINGS: Liver is normal in appearance. No visualized liver lesions. Portal vein and splenic vein are patent. Cholelithiasis. No gallbladder wall thickening or pericholecystic fluid. Visualized pancreas appears normal. No hydronephrosis in either kidney. Normal spleen. Small esophageal hiatal hernia. Normal caliber upper abdominal aorta. No other acute findings. MR/MR abdomen wo con [id number] Impression: 1. No visualized liver lesions 2. Cholelithiasis. No gallbladder wall thickening or pericholecystic fluid. 3. No other acute findings.
--- NOTE | 2025-05-30 11:02 | MR_ITS ---
WS: [id number] MRI HEAD WITHOUT CONTRAST TECHNIQUE: Sagittal T1, T2 axial, T2 axial FLAIR, axial and coronal T1 images, axial susceptibility weighted imaging, axial diffusion weighted images, and coronal T2 images were obtained. CLINICAL INFORMATION: FREQUENT FALLS FINDINGS: No evidence of restricted diffusion to suggest acute ischemia. Ventricular system and basilar cisterns are patent. Normal posterior fossa. Normal vascular flow voids at the skull base. No extra-axial fluid collections. Paranasal sinuses and mastoid air cells are well aerated. Normal posterior nasopharynx. No hemosiderin. Normal optic chiasm and pituitary infundibulum. MR/MR head wo con* [id number] IMPRESSION: 1. No evidence of restricted diffusion to suggest acute ischemia. 2. Moderate small vessel changes. 3. No acute intracranial findings
== END 2025-05-30 10:42 | disposition home or self-care (01) ==
LOC: RAD 10:42
PROVIDERS: PCP Nurse Practitioner Family; Visit Provider Nurse Practitioner Family
DX: R29.6 Repeated falls (principal); K76.9 Liver disease, unspecified; I67.89 Other cerebrovascular disease; K80.20 Calculus of gallbladder without cholecystitis without obstruction
CPT/HCPCS: 70551; 74181

== ENCOUNTER → 2025-06-21 12:52 | Outpatient (BNVA) | payer MEDICARE, OTHER, SELFPAY | PROVIDERS: PCP Nurse Practitioner Family; Visit Provider Internal Medicine | DX: R91.8 Other nonspecific abnormal finding of lung field (principal); J44.89 Other specified chronic obstructive pulmonary disease; Z99.89 Dependence on other enabling machines and devices; F17.210 Nicotine dependence, cigarettes, uncomplicated | CPT/HCPCS: 99214; Q3014 ==